=== PATIENT | male | born 1995 | race African-American/Black ===

== ENCOUNTER 2017-06-27 16:44 | Emergency (ER) | payer OTHER ==
[2017-06-27 16:59] VITALS: BP 151/100; PULSE 72; RESP 18; TEMP 97.7; O2SAT 95
[2017-06-27] MEDS ORDERED: TDAP ADULT 0.5 ML INJ (BOOSTRIX) IM ONE (17:02)
--- NOTE | 2017-06-27 17:13 | EDPHY ---
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 He was struck in the head by a piece of duct work. There was no loss of consciousness. He denies headache, neck pain, change in vision, numbness, and weakness. He has had persistent bleeding from the site of the laceration. No other injuries. He is not certain of his tetanus status. REVIEW OF SYSTEMS: No recent cough or cold, shortness of breath, chest pain, abdominal pain, nausea , vomiting, diarrhea, back pain. Source: Patient Exam Limitations: No limitations - Personal History Current Tetanus Diphtheria and Acellular Pertussis (TDAP): No - Medical/Surgical History Other PMH: DENIES - Social History Smoking Status: Never smoked Alcohol Use: Occasionally Drug Use: Marijuana Additional Social History: He works in construction. - Physical Exam Exam: General Appearance: Alert. Vital signs reviewed. Initial blood pressure 151/ 100. Head: There is a 1.5 cm left parietal scalp laceration. Galea is intact. No palpable skull deformity. Eyes: Pupils equal and round, no conjunctival injection, no discharge. Neck: Nontender to palpation over the cervical spine in the midline. No pain with active range of motion of his neck. Respiratory: Lungs are clear to auscultation; no wheezes, rales, or rhonchi. Cardiovascular: Regular rate and rhythm; no murmur, rub, or gallop. Gastrointestinal: Abdomen is soft and nontender. Skin: Warm and dry, no rashes on exposed skin, normal color. Back: Nontender to palpation over the thoracolumbar spine. Neurological: Alert and oriented. Moving all four extremities easily and equally. ANDER. EOMI. Tongue midline. Facial expressions symmetric. Facial sensation intact to light touch. Psychiatric: Normal affect. Constitutional: Initial Vital Signs Temperature (C) 36.5 C 06/27/17 16:56 Heart Rate 72 06/27/17 16:56 Respiratory Rate 18 06/27/17 16:56 Blood Pressure 151/100 H 06/27/17 16:56 O2 Sat (%) 95 06/27/17 16:56 O2 Delivery Mode Room Air Allergies/Adverse Reactions: No Known Allergies Allergy (Unverified 06/27/17 16:55) Home Medications: Medication Instructions Recorded NK [No Known Home Meds] 06/27/17 Medical Decision Making Procedures: Procedure: Laceration repair. Verbal consent was obtained from the patient. The 1.5 cm laceration on the left parietal scalp was anesthetized in the usual fashion. The wound was irrigated, draped and explored to its base with a gloved finger. There were no deep structures involved. The wound was repaired with four emily. The wound repair was emily. The procedure was performed by myself. ED Course/Re-evaluation: Laceration repaired with surgical emily. There is no evidence of concussion, I do not suspect intracranial hemorrhage or skull fracture, no neck injury. Departure - Departure Disposition: Home, Routine, Self-Care Clinical Impression: Scalp laceration Qualifiers: Encounter type: initial encounter Qualified Code(s): S01.01XA - Laceration without foreign body of scalp, initial encounter Condition: Good Instructions: Laceration (ED), Staple Care (ED) Additional Instructions: This emily need to be removed in 5 days. There are four staple.s Do not get the emily were for 24 hours. After that you can gently wash your hair. You received a tetanus shot in the emergency department today. I am referring you to Dr. Windy Jules for primary care, in case you need to see a local doctor. Referrals: Verena Jules MD [Medical Doctor] - As per Instructions
== END 2017-06-27 17:35 | disposition home or self-care (01) ==
LOC: CED 16:44
PROC: 0HQ0XZZ Repair Scalp Skin, External Approach (ICD-10-PCS; principal; 2017-06-27)
DX: S01.01XA Laceration without foreign body of scalp, initial encounter (principal); Z23 Encounter for immunization; W22.8XXA Striking against or struck by other objects, initial encounter; Y92.69 Other specified industrial and construction area as the place of occurrence of the external cause